=== PATIENT | female | born 1965 | race Caucasian/White ===

== ENCOUNTER → 2023-04-17 | Outpatient (CLI) | payer MEDICARE, BC ==
--- NOTE | 2023-04-18 08:53 | CT ---
EXAMINATION TYPE: CT lumbar spine wo con DATE OF EXAM: 04/17/2023 6:48 PM COMPARISON: HISTORY: Low back pain CT DLP: 1319.2 mGycm Automated exposure control for dose reduction was used. Unenhanced CT of the lumbar spine was performed. Bone and soft tissue window settings are submitted as well as coronal and sagittal reconstructions. There is a stimulator device seen posterior soft tissue catheter lead extending up toward the thoraci c spine posterior spinal canal. Assessment of the spinal canal is limited due to resolution. Atherosclerotic change of aorta is seen. Comment bilateral sacroiliitis. Spina bifida occulta of the sacrum. L1-L2: Normal disc space height. No disc herniation protrusion or central stenosis. No facet joint arthropathy. No evidence for foraminal encroachment. L2-L3: Normal disc space height. No disc herniation protrusion or central stenosis. No facet joint arthropathy. No evidence for foraminal encroachment. L3-L4: Mild circumferential disc bulging. Mild hypertrophic change since. Neural foramina remain cary nt. No canal stenosis. L4-L5: Broad-based central disc protrusion. There is hypertrophic facet arthropathy and ligamentum fl avum hypertrophy. Findings appear to result in bilateral foraminal encroachment and mild to moderate canal stenosis. L5-S1: Calcification posterior to the disc space with moderate degenerative disc disease. Could repre sent calcified disc material. No obvious canal stenosis. There is facet arthropathy and mild bilatera l foraminal greater on the left. IMPRESSION: 1. Broad-based central disc protrusion L4-L5 with hypertrophic changes result in mild to moderate can al stenosis and bilateral foraminal encroachment. 2. Mild circumferential disc bulging L3-L4. 3. Moderate degenerative disc disease L5-S1 with calcified density posterior to the disc space may re present calcified disc small protrusion bulging. No canal stenosis. Hypertrophic change of the facets contribute to bilateral mild foraminal protrusion. 4. Findings suggestive of mild bilateral sacroiliitis
== END | disposition home or self-care (01) ==
LOC: RADCTMAIN 18:27
PROVIDERS: ATTEND Physical Medicine & Rehabilitation Pain Medicine
DX: M51.26 Other intervertebral disc displacement, lumbar region (principal); M51.36 Other intervertebral disc degeneration, lumbar region; M47.816 Spondylosis without myelopathy or radiculopathy, lumbar region; M48.061 Spinal stenosis, lumbar region without neurogenic claudication; Q76.0 Spina bifida occulta; R20.8 Other disturbances of skin sensation
CPT/HCPCS: 72131